=== PATIENT | female | born 1970 | race Caucasian/White ===

== ENCOUNTER 2017-07-30 14:24 | Emergency (ER) | payer MEDICAID ==
[2017-07-30] MEDS ORDERED: NS 1,000 ML IV ONE (14:59)
--- NOTE | 2017-07-30 14:59 | EDPHY ---
H & P Stated Complaint: passed out twice today. h/a and diarrhea Time Seen by Provider: 07/30/17 14:58 HPI/ROS: CHIEF COMPLAINT: Syncope HISTORY OF PRESENT ILLNESS: The patient presents the ED after 2 episodes of syncope today. Both episodes occurred with positional change and exertion. The patient has been having some diarrhea over the past 3 days. She has been having occasional bouts of "lightheadedness" characterized as presyncope and not vertigo. The patient denies any vaginal bleeding or discharge. The patient takes no regular medications. The patient reportedly did see a primary care provider who diagnosed her with "adrenal fatigue" and a possible thyroid disorder. She was scheduled to return for a follow-up visit today but was unable to make the appointment secondary to her symptoms. The patient denies any chest pain, shortness of breath, asymmetric calf pain or swelling or significant abdominal pain. REVIEW OF SYSTEMS: A comprehensive 10 point review of systems is otherwise negative aside from elements mentioned in the history of present illness. Source: Patient - Personal History LMP (Females 10-55): 8-14 Days Ago Current Tetanus/Diphtheria Vaccine: Unsure Current Tetanus Diphtheria and Acellular Pertussis (TDAP): Unsure - Medical/Surgical History Hx Asthma: No Hx Chronic Respiratory Disease: No Hx Diabetes: No Hx Cardiac Disease: No Hx Renal Disease: Yes Hx Cirrhosis: No Hx Alcoholism: No Hx HIV/AIDS: No Hx Splenectomy or Spleen Trauma: No Other PMH: ciliacs, kidney disease - Social History Smoking Status: Never smoked - Physical Exam Exam: General Appearance: Alert, no distress Eyes: Pupils equal and round no pallor or injection ENT, Mouth: Mucous membranes moist Respiratory: There are no retractions, lungs are clear to auscultation Cardiovascular: Regular rate and rhythm Gastrointestinal: Abdomen is soft and nontender, no masses, bowel sounds normal Neurological: A&O, normal motor function, normal sensory exam, normal cranial nerves Skin: Warm and dry, no rashes Musculoskeletal: Neck is supple nontender Extremities: symmetrical, full range of motion Constitutional: Initial Vital Signs Temperature (C) 36.3 C 07/30/17 14:29 Heart Rate 73 07/30/17 14:29 Respiratory Rate 16 07/30/17 14:29 Blood Pressure 143/85 H 07/30/17 14:29 O2 Sat (%) 98 07/30/17 14:29 O2 Delivery Mode Room Air Allergies/Adverse Reactions: No Known Allergies Allergy (Unverified 07/30/17 14:29) Home Medications: Medication Instructions Recorded NK [No Known Home Meds] 07/30/17 Medical Decision Making - Diagnostics EKG Interpretation: EKG: Complete interpretation has been separately recorded in the [facility] archive. Summary impression: Sinus rhythm, rate 57, no ST segment elevation or depression. ED Course/Re-evaluation: The patient presents the ED after a likely episode of vasovagal syncope x2. The patient arrives and is neurologically intact. She is hemodynamically stable. The patient has had a history of frequent urinary tract infections. She is afebrile without evidence of a active UTI on her workup today. The patient has no evidence of anemia, significant metabolic abnormality or arrhythmia. The patient did receive a L of normal saline in the emergency department. She had serial examinations performed by myself over a 3 hr period. At 5:00 p.m., the patient is ambulatory without recurrent presyncope or syncope. At this point time I do feel the patient can be discharged home with customary aftercare instructions and return precautions. Differential Diagnosis: Differential diagnosis considered includes syncope, vasovagal episode, dehydration, metabolic abnormality, urinary tract infection, arrhythmia - Data Points Laboratory Results: Laboratory Results 07/30/17 15:18 07/30/17 15:18 07/30/17 07/30/17 07/30/17 15:30 15:18 15:18 WBC RBC Hgb Hct MCV MCH MCHC RDW Plt Count MPV Neut % (Auto) Lymph % (Auto) [place] % (Auto) Eos % (Auto) Baso % (Auto) Nucleat RBC Rel Count Absolute Neuts (auto) Absolute Lymphs (auto) Absolute Monos (auto) Absolute Eos (auto) Absolute Basos (auto) Absolute Nucleated RBC Immature Gran % Immature Gran # Sodium 140 mEq/L mEq/L (135-145) Potassium 4.0 mEq/L mEq/L (3.5-5.2) Chloride 107 mEq/L mEq/L (97-110) Carbon Dioxide 22 mEq/l mEq/l (22-31) Anion Gap 11 mEq/L mEq/L (8-16) BUN 12 mg/dL mg/dL (7-23) Creatinine 0.6 mg/dL mg/dL (0.6-1.0) Estimated GFR > 60 Glucose 88 mg/dL mg/dL (70-100) Calcium 9.0 mg/dL mg/dL (8.5-10.4) Beta HCG, Qual NEGATIVE Urine Color RED Urine Appearance CLEAR Urine pH 6.0 (5.0-7.5) Ur Specific Justice 1.003 (1.002-1.030) Urine Protein NEGATIVE (NEGATIVE) Urine Ketones NEGATIVE (NEGATIVE) Urine Blood 1+ H (NEGATIVE) Urine Nitrate NEGATIVE (NEGATIVE) Urine Bilirubin NEGATIVE (NEGATIVE) Urine Urobilinogen NEGATIVE EU EU (0.2-1.0) Ur Leukocyte Esterase NEGATIVE (NEGATIVE) Urine RBC 1-3 /hpf /hpf (0-3) Urine WBC 1-3 /hpf /hpf (0-3) Ur Epithelial Cells 1+ /lpf /lpf (NONE-1+) Urine Bacteria 1+ /hpf H /hpf (NONE SEEN) Urine Glucose NEGATIVE (NEGATIVE) 07/30/17 15:18 WBC 5.54 10^3/uL 10^3/uL (3.80-9.50) RBC 4.42 10^6/uL 10^6/uL (4.18-5.33) Hgb 13.6 g/dL g/dL (12.6-16.3) Hct 40.4 % % (38.0-47.0) MCV 91.4 fL fL (81.5-99.8) MCH 30.8 pg pg (27.9-34.1) MCHC 33.7 g/dL g/dL (32.4-36.7) RDW 12.6 % % (11.5-15.2) Plt Count 267 10^3/uL 10^3/uL (150-400) MPV 10.4 fL fL (8.7-11.7) Neut % (Auto) 61.2 % % (39.3-74.2) Lymph % (Auto) 26.9 % % (15.0-45.0) [place] % (Auto) 8.5 % % (4.5-13.0) Eos % (Auto) 2.5 % % (0.6-7.6) Baso % (Auto) 0.7 % % (0.3-1.7) Nucleat RBC Rel Count 0.0 % % (0.0-0.2) Absolute Neuts (auto) 3.39 10^3/uL 10^3/uL (1.70-6.50) Absolute Lymphs (auto) 1.49 10^3/uL 10^3/uL (1.00-3.00) Absolute Monos (auto) 0.47 10^3/uL 10^3/uL (0.30-0.80) Absolute Eos (auto) 0.14 10^3/uL 10^3/uL (0.03-0.40) Absolute Basos (auto) 0.04 10^3/uL 10^3/uL (0.02-0.10) Absolute Nucleated RBC 0.00 10^3/uL 10^3/uL (0-0.01) Immature Gran % 0.2 % % (0.0-1.1) Immature Gran # 0.01 10^3/uL 10^3/uL (0.00-0.10) Sodium Potassium Chloride Carbon Dioxide Anion Gap BUN Creatinine Estimated GFR Glucose Calcium Beta HCG, Qual Urine Color Urine Appearance Urine pH Ur Specific Justice Urine Protein Urine Ketones Urine Blood Urine Nitrate Urine Bilirubin Urine Urobilinogen Ur Leukocyte Esterase Urine RBC Urine WBC Ur Epithelial Cells Urine Bacteria Urine Glucose Medications Given: Discontinued Medications Sodium Chloride (Ns) 1,000 mls @ 0 mls/hr IV ONCE ONE; Wide Open PRN Reason: Protocol Stop: 07/30/17 15:00 Last Admin: 07/30/17 15:40 Dose: 1,000 mls Departure - Departure Disposition: Home, Routine, Self-Care Clinical Impression: Vasovagal episode Condition: Good Instructions: Syncope (DC)
--- NOTE | 2017-07-30 15:29 | CPEKG ---
Heart Rate: 57 RR Interval: 1053 P-R Interval: 168 QRSD Interval: 84 QT Interval: 416 QTC Interval: 405 P [place]: 55 QRS [place]: 71 T Wave [place]: 49 EKG Severity - NORMAL ECG - EKG Impression: SINUS RHYTHM Electronically Signed By: Paulino Banuelos 30-Jul-2017 18:55:22
[2017-07-30 15:31] LABS: PLATELET COUNT 267 10^3/uL (150-400)
[2017-07-30 18:03] VITALS: BP 100/58
== END 2017-07-30 18:03 | disposition home or self-care (01) ==
DX: R55 Syncope and collapse (principal); E86.9 Volume depletion, unspecified